=== PATIENT | female | born 1965 | race Caucasian/White ===

== ENCOUNTER 2022-07-13 19:00 | Emergency (ER) | payer BC, SELFPAY ==
[2022-07-13 19:01] VITALS: BP 166/76; PULSE 52; RESP 18; TEMP 36.7; O2SAT 97; BMI 29.2
[2022-07-13 19:07] VITALS: PULSE 58
--- NOTE | 2022-07-13 19:27 | CTR_ITS ---
PROCEDURE INFORMATION: Exam: CT Abdomen And Pelvis Without Contrast Exam date and time: 07/13/2022 7:32 PM Age: 56 years old Clinical indication: Abdominal pain; Prior surgery; Surgery type: Kidney stone; Polycystic liver; Ban; Patient HX: PT C/O left flank pain that radiates to llq. TECHNIQUE: Imaging protocol: Computed tomography of the abdomen and pelvis without contrast. Radiation optimization: All CT scans at this facility use at least one of these dose optimization techniques: automated exposure control; mA and/or kV adjustment per patient size (includes targeted exams where dose is matched to clinical indication); or iterative reconstruction. REPORTING DATA: Count of CT and Cardiac NM exams in prior 12 months: This patient has received 0 known CTs and 0 known cardiac nuclear medicine studies in the 12 months prior to the current study. COMPARISON: No relevant prior studies available. RADIATION DOSE METRICS: Total DLP (mGy-cm): 783.04 FINDINGS: Lungs: There is a 16 mm lesion at the left lung base with well-defined borders and popcorn type internal calcifications consistent with a benign hamartoma. Liver: Multiple hepatic cystic lesions consistent with the history of polycystic liver the larger of which is in the right hepatic lobe measuring 4.7 cm. Gallbladder and bile ducts: Normal. No calcified stones. No ductal dilation. Pancreas: Normal. No ductal dilation. Spleen: Normal. No splenomegaly. Adrenal glands: Normal. No mass. Kidneys and ureters: There is a 2 mm calculus in the proximal left ureter with mild left hydronephrosis/hydroureter and minimal associated perinephric/periureteral inflammatory stranding. There are multiple bilateral nonobstructing renal calculi as well. Renal cortex and medullary calcifications present as well. Stomach and bowel: Unremarkable. No obstruction. No mucosal thickening. Appendix: A normal appendix is identified. Intraperitoneal space: Unremarkable. No free air. No significant fluid collection. Vasculature: Unremarkable. No abdominal aortic aneurysm. Lymph nodes: Unremarkable. No enlarged lymph nodes. Urinary bladder: Unremarkable as visualized. Reproductive: Unremarkable as visualized. Bones/joints: Moderate degenerative changes in the visualized spine. Grade 1 degenerative retrolisthesis of L3 on L4 and of L5 on S1. Soft tissues: Unremarkable. CT/CT kidney stone [id number] IMPRESSION: 1. There is a 2 mm calculus in the proximal left ureter with mild obstructive changes as described above. 2. Polycystic liver. 3. There are multiple bilateral nonobstructing renal calculi.
--- NOTE | 2022-07-13 19:29 | ED_ITS ---
HPI - Back Pain/Injury General: Chief Complaint: Back Pain/Injury Stated Complaint: BACK PAIN Time Seen by Provider: 07/13/22 19:10 History of Present Illness: Patient comes in with left flank pain that started this morning. States she started noticing pain in her left flank this morning which she describes as a pressure, constant, no radiation. States that as the day has gone she has developed episodes of severe sharp pain that now radiate around into her groin. States she has passed kidney stones before and thinks this may be a kidney stone. She endorses nausea and vomiting as well. Denies fever, diarrhea, cough, congestion. Patient received morphine and Zofran on the ambulance. Associated symptoms: Deny dysuria or fever(s) Review of Systems Const: Denies: fever(s) or body aches Eyes: Denies: change in vision or blurry vision ENMT: Denies: throat pain or odynophagia Card: Denies: chest pain or palpitations Resp: Denies: dyspnea or productive cough GI: Reports: other (Nausea, vomiting, left flank pain) : Denies: dysuria Musc: Denies: neck pain or back pain Skin/Breast: Denies: rash or pruritus Neuro: Denies: headache(s) or numbness in extremities Physical Exam Const: COMMON NORMALS: patient oriented x3, healthy appearing and alert OTHER: Mild distress from pain HENMT: COMMON NORMALS: normocephalic and atraumatic HEAD & SCALP: normocephalic and atraumatic Eye: COMMON NORMALS: Equal, round and reactive pupils present and EOMs intact bilaterally PUPIL: Yes Equal, round and reactive pupils present Neck/C-Spine: COMMON NORMALS: full ROM and supple Resp: COMMON NORMALS: normal respiratory effort, No retractions and No use of accessory muscles Cardio: COMMON NORMALS: regular rate and regular rhythm RATE: regular rate RHYTHM: regular rhythm GI: COMMON NORMALS: Normal to inspection, nondistended, normoactive bowel sounds present, Soft to palpation and non-tender PALPATION: Yes Soft to palpation Back/Pelvis: COMMON NORMALS: thoracic and lumbar spine normal to inspection and no thoracic nor lumbar tenderness Extremity: COMMON NORMALS: normal to inspection and full ROM Neuro: COMMON NORMALS: patient oriented x3 SENSORIUM/ORIENTATION: Yes alert Psych: COMMON NORMALS: mental status grossly normal and cooperative Skin: COMMON NORMALS: no rashes or lesions noted and no wounds GENERAL SKIN EXAM: no rashes or lesions noted Course Vital Signs: Vital signs: Vital Signs Temperature 98.1 F 07/13/22 19:01 Pulse Rate 58 L 07/13/22 19:07 Respiratory Rate 18 07/13/22 19:01 Blood Pressure 165/76 07/13/22 20:37 Pulse Oximetry 97 07/13/22 19:01 Oxygen Delivery Me thod Room Air 07/13/22 20:37 MDM - Back Pain/Injury Medical Decision Making Patient comes in with left flank pain that started this morning. States she started noticing pain in her left flank this morning which she describes as a pressure, constant, no radiation. States that as the day has gone she has de veloped episodes of severe sharp pain that now radiate around into her groin. States she has passed kidney stones before and thinks this may be a kidney stone. She endorses nausea and vomiting as well. Denies fever, diarrhea, cough, congestion. Patient received morphine and Zofran on the ambulance. On physical exam her abdomen is soft, nontender. Will check labs, CT, treat pain with IV Toradol, give IV fluids, and reassess. On reassessment I talked to the patient about her test results. Her white blood cell count is elevated at 18.6. Her CT shows a 2 mm left ureteral stone. We will continue pain medication, Flomax, nausea medication, and discharged with precautions to return for worsening or changing symptoms. Labs 07/13/22 19:46 07/13/22 19:46 Radiology Impressions Abdomen/Pelvis CT 07/13/22 19:27 IMPRESSION: 1. There is a 2 mm calculus in the proximal left ureter with mild obstructive changes as described above. 2. Polycystic liver. 3. There are multiple bilateral nonobstructing renal calculi. Laboratory Results WBC 18.6 10^3/uL (4.0-10.0) H 07/13/22 19:46 RBC 4.21 10^6/uL (4.1-5.3) 07/13/22 19:46 Hgb 12.5 g/dL (11.5-15.3) 07/13/22 19:46 Hct 39.6 % (37.0-47.0) 07/13/22 19:46 MCV 94.1 fl (81-99) 07/13/22 19:46 MCH 29.7 pg (28.0-34.0) 07/13/22 19:46 MCHC 31.6 g/dL (30.0-36.0) 07/13/22 19:46 RDW 13.9 % (12.1-15.1) 07/13/22 19:46 Plt Count 252 10^3/cmm (130-400) 07/13/22 19:46 MPV 10.4 fL (7.4-10.4) 07/13/22 19:46 Neut % (Auto) 82.0 % 07/13/22 19:46 Lymph % (Auto) 11.4 % 07/13/22 19:46 [place] % (Auto) 4.5 % 07/13/22 19:46 Eos % (Auto) 0.9 % 07/13/22 19:46 Baso % (Auto) 0.3 % 07/13/22 19:46 Neut # (Auto) 15.28 10^3/uL (1.8-7.7) H 07/13/22 19:46 Lymph # (Auto) 2.1 10^3/uL (0.8-4.8) 07/13/22 19:46 [place] # (Auto) 0.8 10^3/uL (0.2-0.9) 07/13/22 19:46 Eos # (Auto) 0.2 10^3/uL (0.0-0.8) 07/13/22 19:46 Baso # (Auto) 0.1 10^3/uL (0.0-0.1) 07/13/22 19:46 Nucleated RBC % (auto) 0 % 07/13/22 19:46 Nucleated RBCs # 0.0 /100WBC 07/13/22 19:46 Sodium 142 mmol/L (136-145) 07/13/22 19:46 Potassium 3.9 mmol/L (3.5-5.1) 07/13/22 19:46 Chloride 105 mmol/L (98-107) 07/13/22 19:46 Carbon Dioxide 25 mmol/L (22-29) 07/13/22 19:46 Anion Gap 15.9 (5-19) 07/13/22 19:46 BUN 13 mg/dL (6-20) 07/13/22 19:46 Creatinine 0.5 mg/dL (0.5-0.9) 07/13/22 19:46 GFR Calculation 127.6 mL/min (90-130) 07/13/22 19:46 Glucose 123 mg/dL (65-115) H 07/13/22 19:46 Calculated Osmolality 295 mOsm/kg (285-295) 07/13/22 19:46 Calcium 8.2 mg/dL (8.5-10.5) L 07/13/22 19:46 Total Bilirubin 0.3 mg/dL (0.15-1.2) 07/13/22 19:46 AST 15 U/L (0-32) 07/13/22 19:46 ALT 13 U/L (0-33) 07/13/22 19:46 Alkaline Phosphatase 91 U/L (35-105) 07/13/22 19:46 Total Protein 6.2 g/dL (6.6-8.7) L 07/13/22 19:46 Albumin 4.0 g/dL (3.5-5.2) 07/13/22 19:46 Globulin 2.2 g/dL (1.3-4.6) 07/13/22 19:46 Urine Color Dark yellow (Yellow) 07/13/22 21:15 Urine Appearance Cloudy (CLEAR) A 07/13/22 21:15 Urine pH 6 (5-7) 07/13/22 21:15 Ur Specific [place] 1.025 (1.005-1.030) 07/13/22 21:15 Urine Protein Trace (Negative) 07/13/22 21:15 Urine Glucose (UA) Norm (Normal) 07/13/22 21:15 Urine Ketones 1+ (Negative) H 07/13/22 21:15 Urine Blood 3+ (Negative) H 07/13/22 21:15 Urine Nitrate Negative (Negative) 07/13/22 21:15 Urine Bilirubin Neg (Negative) 07/13/22 21:15 Urine Urobilinogen Norm mg/dL (Negative) 07/13/22 21:15 Ur Leukocyte Esterase Negative (Negative) 07/13/22 21:15 Urine RBC Too numerous to cnt /hpf (0-2) H 07/13/22 21:15 Urine WBC 0-4 /hpf (0-5) H 07/13/22 21:15 Ur Squamous Epith Cells 0-4 /hpf (0-5) H 07/13/22 21:15 Amorphous Sediment Not Reportable 07/13/22 21:15 Urine Bacteria Trace /hpf (NONE) 07/13/22 21:15 Urine Mucus Trace /hpf 07/13/22 21:15 Discharge Plan Discharge Patient Disposition: Home Clinical Impression: Kidney stone Condition: Stable Prescriptions: New Flomax 0.4 mg capsule 0.4 mg PO DAILY Qty: 4 0RF hydrocodone-acetaminophen 5-325 mg tablet 1 tab PO Q6H PRN (Reason: pain) Qty: 10 0RF ondansetron 4 mg tablet,disintegrating 4 mg PO Q8H PRN (Reason: nausea and vomiting) 4 Days Qty: 14 0RF Discharge Orders: Discharge ED (Routine); Ordered 07/13/22 Ordered By: Lorenzo Chiu Patient Instructions: Kidney Stones, Opioid Safety Coding Level of Care Code ED [employer] for Duncan Butler
[2022-07-13] MEDS: sodium chloride 0.9% 1,000 ML 999 ML IV ×2 (19:48→21:47)
[2022-07-13] MEDS: ketorolac 30 mg/mL INJ 15 MG IVP (19:48)
[2022-07-13 19:51] LABS: Basophils # 0.1 10^3/uL (0.0-0.1); Basophils % 0.3 %; Eosinophils # 0.2 10^3/uL (0.0-0.8); Eosinophils % 0.9 %; Hematocrit 39.6 % (37.0-47.0); Hemoglobin 12.5 g/dL (11.5-15.3); Lymphocytes # 2.1 10^3/uL (0.8-4.8); Lymphocytes % 11.4 %; Mean Corpuscular HGB Conc 31.6 g/dL (30.0-36.0); Mean Corpuscular Hemoglobin 29.7 pg (28.0-34.0); Mean Corpuscular Volume 94.1 fl (81-99); Mean Platelet Volume 10.4 fL (7.4-10.4); Monocytes # 0.8 10^3/uL (0.2-0.9); Monocytes % 4.5 %; Neutrophils # 15.28 10^3/uL (1.8-7.7); Nucleated Red Blood Cells % 0 %; Platelet Count 252 10^3/cmm (130-400); Red Blood Count 4.21 10^6/uL (4.1-5.3); Red Cell Distribution Width 13.9 % (12.1-15.1); White Blood Count 18.6 10^3/uL (4.0-10.0)
[2022-07-13 20:10] LABS: Alanine Aminotransferase 13 U/L (0-33); Alkaline Phosphatase 91 U/L (35-105); Anion Gap 15.9 (5-19); Aspartate Amino Transferase 15 U/L (0-32); Blood Urea Nitrogen 13 mg/dL (6-20); Calcium 8.2 mg/dL (8.5-10.5); Carbon Dioxide 25 mmol/L (22-29); Chloride 105 mmol/L (98-107); Globulin 2.2 g/dL (1.3-4.6); Glomerular Filtration Rate 127.6 mL/min (90-130); Glucose 123 mg/dL (65-115); Osmolality Calculated 295 mOsm/kg (285-295); Potassium 3.9 mmol/L (3.5-5.1); Sodium 142 mmol/L (136-145); Total Bilirubin 0.3 mg/dL (0.15-1.2); Total Protein 6.2 g/dL (6.6-8.7)
[2022-07-13] MEDS: HYDROmorphone 1 mg/mL INJ 1 mL IVP ×3 (20:12→22:55)
[2022-07-13] MEDS: tamsulosin 0.4 mg Capsule PO (20:12)
[2022-07-13 20:37] VITALS: BP 165/76
[2022-07-13 21:37] LABS: Bilirubin Urine Neg (Negative); Blood Urine 3+ (Negative); Glucose Urine UA Norm (Normal); Ketones Urine 1+ (Negative); Leukocyte Esterase Urine Negative (Negative); Nitrate Urine Negative (Negative); Protein Urine Trace (Negative); Specific Gravity, Urine 1.025 (1.005-1.030); Urine Appearance Cloudy (CLEAR); Urine Color Dark Yellow (Yellow); Urobilinogen Urine Norm (Negative); pH Urine 6 (5-7)
[2022-07-13 21:38] LABS: Add Urine Culture? Yes; Add Urine Microscopic? YES; Bacteria Urine TRACE /hpf; Mucus Urine TRACE /hpf; RBC Urine TOO NUMEROUS TO CNT /hpf (0-2); Squamous Epithelial Cell Urine 0-4 /hpf (0-5); WBC Urine 0-4 /hpf (0-5)
[2022-07-13] MEDS: ondansetron 2 mg/ML SDV 2 mL 4 MG IVP (22:07)
[2022-07-13 22:35] VITALS: RESP 17; O2SAT 98
[2022-07-13] MEDS: HYDROcodone-acetaminophen 5-325 mg Tablet 2 TAB PO (22:40)
[2022-07-13] MEDS: metoclopramide 5 mg/mL SDV 2 mL 10 MG IVP (22:55)
--- NOTE | 2022-07-17 13:24 | DCPLANNER ---
territory outside sales manager called patient due to no primary care physician - patient does not live in the area.
== END 2022-07-13 23:04 | disposition home or self-care (01) ==
PROVIDERS: Emergency Provider Emergency Medicine
DX: N20.0 Calculus of kidney (principal)
CPT/HCPCS: 74176; 80053; 81001; 85025; 87086; 96361; 96374; 96375; 96376; 99285; J1170; J1885; J2405; J2765; J7030